=== PATIENT | female | born 1990 | race Hispanic/Latino ===

== ENCOUNTER 2023-02-20 13:20 | Emergency (ER) | payer BC | END 2023-02-20 15:29 | disposition home or self-care (01) | LOC: ERS 13:20 | DX: T88.6XXA Anaphylactic reaction due to adverse effect of correct drug or medicament properly administered, initial encounter (principal); T45.1X5A Adverse effect of antineoplastic and immunosuppressive drugs, initial encounter | CPT/HCPCS: 99284 ==